=== PATIENT | female | born 1985 | race Caucasian/White ===

== ENCOUNTER 2020-04-24 10:14 | Outpatient (CLI) | payer MEDICAID, SELFPAY ==
--- NOTE | 2020-04-24 | DI.US_ITS ---
EXAM: US PELVIS TRANSVAGINAL CLINICAL HISTORY: LLQ ABD PAIN,R10.32,TENDERNESS TO PALPATION, OVARIAN TENDERNESS. TECHNIQUE: Transabdominal pelvic ultrasound was performed. Spectral Doppler analysis was performed. COMPARISON: No exams were available for comparison FINDINGS: UTERUS: Position: Anteverted. Size: 6.7 long by 2.9 AP by 4.6 transverse cm Endometrium: 0.5 cm. Normal for patient's menstrual status. Myometrium: Unremarkable. Cervix: Unremarkable. OVARIES: Right: 2.6 x 1.5 x 1.3 cm Cyst or mass: None. Left: 2.1 x 1.5 x 1.7 cm Cyst or mass: None. DOPPLER: Color: Symmetric and uniform flow to both ovaries. No hyperemia. Duplex: Normal ovarian arterial waveforms visualized. CUL-DE-SAC: Free fluid: None. Kidneys: Unremarkable. IMPRESSION: 1. Normal-appearing uterus with endometrial stripe within normal limits. 2. Unremarkable bilateral ovaries. DATA REPOSITORY:
== END 2020-04-24 10:34 ==
PROVIDERS: PCP Nurse Practitioner Family; Visit Provider Nurse Practitioner Family
DX: R10.32 Left lower quadrant pain (principal)
CPT/HCPCS: 76830; 76856

== ENCOUNTER 2020-04-24 10:50 | Outpatient (REF) | payer MEDICAID, SELFPAY ==
--- NOTE | 2020-04-24 10:00 | PAPFT_PTH ---
PATIENT: Lulú Zurita LOC: [facility]#:[id number] AGE/SX: 35/F ROOM: RE04/24/[address]: Maria Teresa Melendrez : 1985 BED: DIS: 04/24/2020 SPEC #: [id number] RECD: 04/25/20 12:47 STATUS: ELSY REKeeley #: [id number] BALJEET: 04/24/20 10:[address]: Maria Teresa Melendrez DEPT: [facility] Cytology RECD BY: Amira Metcalf Tissues: 1 - CX/ENDOCX FOR PAP SMEARS Procedures: PAP THIN PREP/UVM Screening HPV DNA PROBE Comments: [id number]
[2020-04-24 20:49] LABS: HCT 42.7 % (36.0-46.0); HGB 13.8 g/dL (11.2-15.7); MCH 29.6 pg (27.0-33.0); MCHC 32.3 % (32.0-36.0); MCV 91.6 fL (80-95); MPV 10.3 fL (8.0-11.0); Platelet Count 425 10^3/uL (130-400); RBC 4.66 10^6/uL (3.93-5.22); RDW 12.6 % (11.7-14.6); RDW-SD 41.8 fL; WBC 8.13 10^3/uL (4.4-10.8)
[2020-04-24 20:57] LABS: C-Reactive Protein 1.24 mg/dL (0.0-0.3)
[2020-04-25 12:53] LABS: ALT 31 U/L (14-59); AST 19 U/L (15-37); Albumin 3.6 g/dL (3.4-5.0); Alkaline Phosphatase 85 U/L (46-116); Anion Gap 7.9 mmol/L (3-11); BUN 8 mg/dL (7-18); Bilirubin, Total 0.2 mg/dL (0.2-1.0); CO2 26.1 mmol/L (21.0-32.0); CREATININE 0.82 mg/dL (0.55-1.02); Calcium 8.8 mg/dL (8.5-10.1); Chloride 104 mmol/L (98-107); Glucose 107 mg/dL (74-106); Potassium 4.4 mmol/L (3.5-5.1); Sodium 138 mmol/L (136-145)
[2020-04-26 15:07] LABS: Chlamydia Result Negative (Negative); GC Result Negative (Negative)
== END 2020-04-24 11:10 ==
LOC: NCHCN 10:50
PROVIDERS: PCP Nurse Practitioner Family; Visit Provider Nurse Practitioner Family
DX: R10.32 Left lower quadrant pain (principal); Z11.3 Encounter for screening for infections with a predominantly sexual mode of transmission; Z12.4 Encounter for screening for malignant neoplasm of cervix; Z11.51 Encounter for screening for human papillomavirus (HPV)
CPT/HCPCS: 80053; 85027; 87491; 87591; 88142; 86140; 87624

== ENCOUNTER 2020-04-25 01:40 | Outpatient (CLI) | payer MEDICAID, SELFPAY ==
--- NOTE | 2020-04-25 | DI.CT_ITS ---
EXAM: CT ABDOMEN PELVIS W CLINICAL HISTORY: LLQ ABD PAIN,M R10.32, F/U ABNL US TECHNIQUE: Imaging Protocol: Axial computed tomography images with coronal and sagittal reformatted images were created and reviewed CONTRAST MATERIAL: Intravenous: Omnipaque 350 Contrast volume:100 mL Oral: Yes COMPARISON: No exams were available for comparison FINDINGS: ABDOMEN: Lung Bases: No acute abnormality. Liver: Normal density. No measurable mass. Portal, Superior Mesenteric, and Splenic Veins: Unremarkable. Gallbladder and Biliary Tract: No radiodense calculus or dilation. Pancreas: Normal density, no abnormal calcifications or inflammatory process. Spleen: Normal. Adrenals: No masses seen. Kidneys: Normal size, contour and axis. No radiodense stones or obstructive uropathy. No masses seen. Abdominal Aorta: Abdominal portion non-dilated. Bowel: No obstruction or bowel wall thickening. Appendix is unremarkable. There is a 1.2 x 1.8 cm ova l pericolonic fat density nodule of the descending colon with a hyperdense ring and surrounding infla mmation consistent with epiploic appendagitis. Peritoneal Cavity: No ascites, collection or mesenteric inflammatory response. Lymph Nodes: Within normal limits. Bones: Unremarkable. Soft Tissues: Unremarkable. PELVIS: Bladder: Symmetric distention, no gross wall thickening. Reproductive Organs: Unremarkable as visualized. Lymph Nodes: Within normal limits. Bones: Within normal limits. IMPRESSION: Findings consistent with epiploic appendagitis of the descending colon. RADIATION DOSE DELIVERED: 782.39mGy.cm Total DLP DATA REPOSITORY: All CT scans at this facility are submitted to the National Radiology Data Registry (NRDR) Dose Index Registry (DIR) with the [employer] (ACR). RADIATION OPTIMIZATION: All CT scans at this facility use at least one of these dose optimization te chniques: automated exposure control; mA and/or kV adjustment per patient size (includes targeted exa ms where dose is matched to clinical indication); or iterative reconstruction.
[2020-04-25] MEDS: Omnipaque 350 MG/ML 100 ML BTL IJ (14:34)
== END 2020-04-25 02:00 ==
PROVIDERS: PCP Nurse Practitioner Family; Visit Provider Nurse Practitioner Family
DX: R10.32 Left lower quadrant pain (principal)
CPT/HCPCS: 74177; J3490

== ENCOUNTER 2022-08-31 12:22 | Observation (INO) | payer MEDICAID, SELFPAY ==
[2022-08-31 12:34] VITALS: BP 126/80; PULSE 86; RESP 20; TEMP 37.6; O2SAT 98
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
[2022-08-31 13:56] LABS: Bilirubin Negative (Negative); Blood Negative (Negative); Clarity Clear (Clear); Glucose Negative (Negative); Ketones Negative (Negative); Leukocyte Esterase Negative (Negative); Nitrite Negative (Negative); Specific Gravity 1.025 (1.005-1.025); Urobilinogen 0.2 EU/dL (Up TO 0.2)
[2022-08-31 13:59] LABS: Source Nasal/Nares
--- NOTE | 2022-08-31 14:12 | CMSP_ITS ---
- If Service Date Differs Date of service: 08/31/22 Time of Service: 14:12 Care Management Safety Plan Status: Voluntary - Reason for Wait Reason for Wait: Inpatient Admission CHIEF COMPLAINT: Lulú presents in the ED for suicidal ideation with thoughts of either crashing her car, overdosing or jumping out of a window. She also reports homicidal thoughts towards her boyfriend's ex-partner. Lulú is assessed by [facility] and found to meet criteria for a voluntary psychiatric placement. Referrals are faxed by [facility] to [facility], [facility], [facility], and [facility] for review. Lulú will remain voluntarily at [facility] and will be reassessed daily by [facility] until a placement can be secured for her. VOLUNTARY FOR INPATIENT PSYCHIATRIC STABILIZATION. Patient is appropriate in all interactions since arriving at [facility]; Pt has demonstrated appropriate coping and communication skills, has articulated his or her needs and concerns and is fully engaged during staff interactions. Safety plan has been established with patient, and care team, to adhere to patient goals, identify restrictions based on behavioral status, address nutrition, and determine allowed personal belongings, tools for hygiene and p ersonal care. Determine level of activity including ambulation, level of supervision, visitors, and determine privileges based on behaviors and level of engagement by pt. A decentralized huddle is done with Cristiano, ED provider, Lexi, nursing boxing and pressing supervisor, RINA Sanders, and MARTI Doran. SAFETY PLAN: 1. Will remain on suicide precautions. In Paper Clothes 2. Will remain in room under direct supervision of one-on-one staff at all times provided by CPSO, BRIDGETTE, [employer] FOUNTAIN CLERK mine supervisor. 3. May have paper cups, plates, finger foods as well as a cardboard spoon with which to eat meals. 4. Follow [facility] Management of the Admitted Behavioral Health Patient policy. 5. Shower permitted with escort at RN discretion. 6. No personal belongings-soft items permitted at RN discretion. 7. Visitors: Per [facility] visitor policy and at RN discretion. 8. Activities: soft cart items, music tablet, television and other activities at RN discretion. 9. Bathroom privileges with escort in the ED, available in room without limita tion on M/S. 10. Phone: contact limited to family at this time, via [facility] phone at RN discretion. 11. Due to VOLUNTARY status, if patient wishes to leave [facility], staff will contact [facility] Crisis Screener ([phone]) and On-Call Reading Professor ([phone]) as soon as possible. In the event of elopement, notify [facility] Police ([phone]). Patient is currently voluntarily at [facility] and seeking inpatient admission when a bed becomes available. [facility] Frontline Personal Development Mentor will continue seeking placement. Please contact the Pipelayer Reading Professor ([phone]) and [facility] Personal Development Mentor ([phone]) for any needed changes in the Safety Plan. Safety plan has been provided to interdepartmental care team.
--- NOTE | 2022-08-31 14:12 | PDOC.CMSAFED ---
- If Service Date Differs Date of service: 08/31/22 Time of Service: 14:12 Care Management Safety Plan Status: Voluntary - Reason for Wait Reason for Wait: Inpatient Admission CHIEF COMPLAINT: Lulú presents in the ED for suicidal ideation with thoughts of either crashing her car, overdosing or jumping out of a window. She also reports homicidal thoughts towards her boyfriend's ex-partner. Lulú is assessed by [facility] and found to meet criteria for a voluntary psychiatric placement. Referrals are faxed by [facility] to [facility], [facility], [facility], and [facility] for review. Lulú will remain voluntarily at [facility] and will be reassessed daily by [facility] until a placement can be secured for her. VOLUNTARY FOR INPATIENT PSYCHIATRIC STABILIZATION. Patient is appropriate in all interactions since arriving at [facility]; Pt has demonstrated appropriate coping and communication skills, has articulated his or her needs and concerns and is fully engaged during staff interactions. Safety plan has been established with patient, and care team, to adhere to patient goals, identify restrictions based on behavioral status, address nutrition, and determine allowed personal belongings, tools for hygiene and personal care. Determine level of activity including ambulation, level of supervision, visitors, and determine privileges based on behaviors and level of engagement by pt. A decentralized huddle is done with Cristiano, ED provider, Lexi, nursing lending activities supervisor, RINA Sanders, and MARTI Doran. SAFETY PLAN: 1. Will remain on suicide precautions. In Paper Clothes 2. Will remain in room under direct supervision of one-on-one staff at all times provided by CPSO, BRIDGETTE, MANAGER MATERIALS MANAGEMENT rotary rig engine operator. 3. May have paper cups, plates, finger foods as well as a cardboard spoon with which to eat meals. 4. Follow [facility] Management of the Admitted Behavioral Health Patient policy. 5. Shower permitted with escort at RN discretion. 6. No personal belongings-soft items permitted at RN discretion. 7. Visitors: Per [facility] visitor policy and at RN discretion. 8. Activities: soft cart items, music tablet, television and other activities at RN discretion. 9. Bathroom privileges with escort in the ED, available in room without limitation on M/S. 10. Phone: contact limited to family at this time, via [email or web address] phone at RN discretion. 11. Due to VOLUNTARY status, if patient wishes to leave [facility], staff will contact [facility] Crisis Screener ([phone]) and On-Call Composition Worker ([phone]) as soon as possible. In the event of elopement, notify [facility] Police ([phone]). Patient is currently voluntarily at [facility] and seeking inpatient admission when a bed becomes available. [facility] Frontline Steam Clean Machine Operator will continue seeking placement. Please contact the Electric Power Machine Operator Composition Worker ([phone]) and [facility] Steam Clean Machine Operator ([phone]) for any needed changes in the Safety Plan. Safety plan has been provided to interdepartmental care team.
[2022-08-31 14:24] LABS: *AMPHETAMINES SCREEN URINE Negative (Negative); *BARBITURATES SCREEN URINE Negative (Negative); *BENZODIAZEPINES SCREEN URINE Negative (Negative); Cannabinoids THC Positive (Negative); Cocaine Screen,Urine Negative (Negative); METHADONE URINE SCREEN Negative (Negative); OPIATES URINE SCREEN Negative (Negative)
[2022-08-31 14:27] LABS: Tricyclic Antidepressants Negative (Negative)
[2022-08-31 14:31] LABS: COVID-19 PCR Negative (Negative)
[2022-08-31 15:36] VITALS: BP 105/60; PULSE 63; RESP 14; TEMP 36.7; O2SAT 98
[2022-08-31 15:47] VITALS: BP 105/60; PULSE 63; RESP 14; TEMP 36.7; O2SAT 98
--- NOTE | 2022-08-31 18:18 | W.PM.DS.N ---
Date of service: 08/31/22 Time of Service: 18:18 Discharge Plan Disposition Patient Disposition: Against Medical Advise Condition: Poor Discharge Details Reason For Visit: major depression w/suicidal ideation Admit Date/Time: 08/31/22 14:06 Admit Provider: Prashant Tenorio Attending Provider: Prashant Tenorio [facility] Course: admitted voluntarily for major depression with suicidal ideation, no plan. medically cleared in ED and evaluated by psyche. I was alerted that after arrival to the floor she was leaving. I attempted to talk to her about why she was here and why she was leaving and she stated that she had kids and needed to be home for [place]. she was crying and would not tell me why she came here but would only tell me she needed to leave and did not want to talk to me any longer. mental health notified that she was leaving. discussed with DR Tenorio. Home Meds and New Rx's Prescriptions: No Action No Known Home Meds Discharge Instructions Diet:: Other Discharge Orders Discharge Orders: Discharge Order (Routine); Ordered 08/31/22 Ordered By: Pao Smith Discharge Data Discharge Date/Time-TO BE ENTERED AT DEPARTURE: 08/31/22 16:51 Discharge Comment: DEEPAK DS: Summary Time Spent with Patient providing and/or coordinating discharge services: Less than 30 minutes Status at Discharge Functional status at discharge: independent ambulation Overall status at discharge: patient is not back to baseline Mental Status: other (crying, mildly distraught) Speech and Movement: agitated Mood: angry and other (crying, mildly distraught) Affect: anxious affect Exam Const General: No well groomed and in distress other (emotional) Nutritional Appearance: average body habitus Orientation: alert and awake Psych Appearance: disheveled Mental Status: other (crying, mildly distraught) Speech and Movement: agitated Mood: angry and other (crying, mildly distraught) Affect: anxious affect Attitude: avoids eye contact and refuses to answer Insight: poor Judgment: poor DS: Data Vitals/I&O Vitals and I&O: Vital Signs Temperature 36.7 C 08/31/22 15:47 Temperature Source Tympanic 08/31/22 15:47 Pulse 63 08/31/22 15:47 Pulse Rhythm Regular 08/31/22 15:36 Respiratory Rate 14 08/31/22 15:47 Respiratory Effort Non-Labored 08/31/22 15:36 Respiratory Depth Normal 08/31/22 15:36 Respiratory Pattern Normal 08/31/22 15:36 Blood Pressure 105/60 08/31/22 15:47 Blood Pressure Position Sitting 08/31/22 12:34 Pulse Oximetry 98 08/31/22 15:47 Oxygen Delivery Method Room Air 08/31/22 15:47 Oxygen Flow Rate 0 08/31/22 15:47 Pain Level 0 08/31/22 16:28 Intake & Output 08/30/22 08/31/22 08/31/22 23:59 11:59 23:59 Weight 58.9 kg Other: Urine Appearance Clear Data Completed and Pending Labs on day of discharge: Labs from last 24 hours 08/31/22 08/31/22 08/31/22 13:50 13:14 13:14 Urine Color Yellow Urine Clarity Clear Urine pH 6.0 Ur Specific [place] 1.025 Urine Protein Negative Urine Ketones Negative Urine Blood Negative Urine Nitrite Negative Urine Bilirubin Negative Urine Urobilinogen 0.2 Ur Leukocyte Esterase Negative Urine Glucose Negative Urine Opiates Screen Negative Urine Methadone Screen Negative Ur Barbiturates Screen Negative Ur Tricyclics Screen Negative Ur Amphetamines Screen Negative U Benzodiazepines Scrn Negative Urine Cocaine Screen Negative Ur THC Screen Positive A COVID-19 Source Nasal/Nares SARS-CoV-2 (PCR) Negative PFSH All Active Problems (Updated 08/31/22 @ 13:55 by KVNG Lion) Depression with suicidal ideation (Acute) Social History Smoking/Tobacco Use Status: Current every day Tobacco Type: cigarettes Smoking risk assessment performed?: Yes Alcohol Intake: never Drug use: Daily Substance use type: marijuana Details: takes Ritalin 20mg 2-6 pills at a time, states she does not do this every day. last time she took pills 08/28 Do you feel safe at home: No (becasue of own thoughts no anyone else) Do you feel safe in your relationship?: Yes
== END 2022-08-31 16:51 | disposition left against medical advice (07) ==
LOC: ER 15:14 → MS 15:18
PROVIDERS: Admitting Provider Family Medicine; Emergency Provider Physician Assistant; PCP Nurse Practitioner Family; Visit Provider Family Medicine
DX: F32.9 Major depressive disorder, single episode, unspecified (principal); R45.851 Suicidal ideations; F12.90 Cannabis use, unspecified, uncomplicated; F15.90 Other stimulant use, unspecified, uncomplicated; F17.210 Nicotine dependence, cigarettes, uncomplicated; Z20.822 Contact with and (suspected) exposure to COVID-19
CPT/HCPCS: 80307; 81025; 87635; 99285; 81003; 99219

== ENCOUNTER 2022-08-31 21:56 | Emergency (ER) | payer MEDICAID, SELFPAY ==
[2022-08-31 22:00] VITALS: BP 141/56; PULSE 96; RESP 18; TEMP 36.8; O2SAT 98
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
== END 2022-09-01 00:30 | disposition home or self-care (01) ==
PROVIDERS: Emergency Provider Emergency Medicine; PCP Nurse Practitioner Family
DX: F32.A Depression, unspecified (principal); F43.22 Adjustment disorder with anxiety; R45.851 Suicidal ideations
CPT/HCPCS: 99283

== ENCOUNTER 2023-07-29 11:21 | Outpatient (REF) | payer MEDICAID, SELFPAY ==
--- NOTE | 2023-07-29 11:00 | PAPFT_PTH ---
PATIENT: Lulú Zurita LOC: [facility] U#:[id number] AGE/SX: 38/F ROOM: RE07/29/[address]: Kristin Rojas DO : 1985 BED: DIS: 07/29/2023 SPEC #: [id number] RECD: 07/29/23 13:06 STATUS: ELSY REKeeley #: [id number] BALJEET: 07/29/23 11:[address]: Kristin Rojas DEPT: [facility] Cytology RECD BY: Amira Metcalf ENTERED: 07/29/23 13:07 SP TYPE: PAPFT OTHR DR: Maria Teresa Melendrez Tissues: 1 - CX/ENDOCX FOR PAP SMEARS Procedures: PAP THIN PREP/[facility] Screening HPV DNA PROBE Comments: [id number] (HPV 16 & 18/45)
== END 2023-07-29 11:22 | disposition home or self-care (01) ==
LOC: LBN 11:21
PROVIDERS: PCP Nurse Practitioner Family; Visit Provider Obstetrics & Gynecology
DX: Z12.4 Encounter for screening for malignant neoplasm of cervix (principal)
CPT/HCPCS: 88142; 87624